=== PATIENT | female | born 2000 | race Caucasian/White ===

== ENCOUNTER 2022-11-26 23:14 | Emergency (ER) | payer OTHER ==
[~2022-11-26] VITALS: Ht 165.1 cm; Wt 66.2 kg
[2022-11-27] MEDS ORDERED: LIDOCAINE HCL100 ML MT (00:27)
== END 2022-11-27 00:41 | disposition home or self-care (01) ==
LOC: ED 23:14
DX: J02.9 Acute pharyngitis, unspecified (principal); Z20.822 Contact with and (suspected) exposure to COVID-19
CPT/HCPCS: 87081; 87502; 87880; 99283; U0003

== ENCOUNTER 2023-03-04 14:58 | Emergency (ER) | payer OTHER ==
[~2023-03-04] VITALS: Ht 165.1 cm; Wt 66.2 kg
[~2023-03-04 14:58] MED LIST: LIDOCAINE HCL100 ML MT
[2023-03-04 17:56] VITALS: BP 114/73
== END 2023-03-04 17:59 | disposition home or self-care (01) ==
LOC: ED 14:58
DX: S83.92XA Sprain of unspecified site of left knee, initial encounter (principal); X50.1XXA Overexertion from prolonged static or awkward postures, initial encounter; Y93.51 Activity, roller skating (inline) and skateboarding
CPT/HCPCS: 73560; 99283-25

== ENCOUNTER 2023-06-18 14:44 | Emergency (ER) | payer OTHER ==
[~2023-06-18] VITALS: Ht 165.1 cm; Wt 72.6 kg
[2023-06-18 15:37] LABS: INFLUENZA B NAA NEGATIVE (NEGATIVE); RESPIRATORY SYNCYTIAL VIR NAA NEGATIVE (NEGATIVE)
[2023-06-18 16:30] VITALS: BP 107/72
== END 2023-06-18 16:31 | disposition home or self-care (01) ==
LOC: ED 14:44
PROVIDERS: Emergency Medicine
DX: B34.9 Viral infection, unspecified (principal); Z20.822 Contact with and (suspected) exposure to COVID-19
CPT/HCPCS: 87502; 99283; C9803; U0002